=== PATIENT | male | born 1950 | race Caucasian/White ===

== ENCOUNTER 2018-10-29 20:23 | Emergency (ER) | payer MEDICARE ==
[~2018-10-29] VITALS: Ht 182.9 cm; Wt 97.5 kg
[2018-10-29] MEDS ORDERED: ONDANSETRON 4 MG/2 ML (SDV) Z0FRAN IVP STA (21:37)
[2018-10-29] MEDS ORDERED: NS IV 1000 ML 1,000 ML IV STA (21:37)
[2018-10-29] MEDS ORDERED: KETOROLAC 30 MG/ML VIAL IVP STA (21:37)
--- NOTE | 2018-10-29 21:45 | ED Back Pain ---
General Chief Complaint: Back Problems Stated Complaint: LEFT BACK PAIN Nursing Triage Note: PT AMBULATE TO ROOM FS05 WITH C/O BACK PAIN STARTING APPROX 0030 TODAY. PT STATES PAIN IS ON THE LEFT SIDE. PT STATES PAIN WOKE HIM UP FROM SLEEP. PT REPORTS HX OF KIDNEY STONES. Nursing Sepsis Screen: No Definite Risk Source of Information: Patient, Spouse History of Present Illness Date Seen by Provider: Oct 29, 2018 Time Seen by Provider: 21:27 Initial Comments 68-year-old male presenting with complaints of left flank pain that has been going on since 12:30 this morning. He states that he has had kidney stones in the past but it's been over 16 years since his last one. He denies any history diverticulitis. He initially had pain that woke him up this morning. He had manage the pain throughout the day and has taken some Tylenol for it around 1 this afternoon. He has not needed anything else for pain since then. He then had worse pain around 7 PM. While in the emergency Department he had flank pain and nausea that developed. He denies having any bloody stools or blood in his urine today. He denies fever or chills today. Allergies and Home Medications Allergies Coded Allergies: Penicillins (Verified Allergy, Unknown, 10/29/18) Home Medications Hydrocodone/Acetaminophen 1 Each Tablet, 0.5-1 EACH PO Q6H PRN for PAIN-MODERATE Prescribed by: NELLY MATTHEWS on 10/29/182252 Ondansetron HCl 4 Mg Tablet, 4 MG PO Q6H PRN for NAUSEA/VOMITING Prescribed by: NELLY MATTHEWS on 10/29/18 225 Patient Home Medication List Home Medication List Reviewed: Yes Review of Systems Constitutional: No chills, No fever EENTM: no symptoms reported Respiratory: no symptoms reported Cardiovascular: no symptoms reported Gastrointestinal: abdominal pain (left flank pain); No diarrhea; nausea (developed in ED) Genitourinary: No dysuria; other (left flank pain) Musculoskeletal: back pain (left flank pain) Skin: no symptoms reported Psychiatric/Neurological: No Symptoms Reported Past Wyfslkd-Fdyrrz-Bxotjg Hx Past Med/Social Hx: Reviewed Nursing Past Med/Soc Hx Patient Social History Alcohol Use: Denies Use Recreational Drug Use: No Smoking Status: Never a Smoker 2nd Hand Smoke Exposure: No Recent Foreign Travel: No Contact w/Someone Who Travel: No Recent Infectious Disease Expo: No Recent Hopitalizations: No Physical Abuse: No Sexual Abuse: No Mistreated: No Fear: No Seasonal Allergies Seasonal Allergies: No Past Medical History Surgeries: Yes Vasectomy Respiratory: No Cardiac: Yes Hypertension Neurological: No Genitourinary: Yes Kidney Infection, Kidney Stones Gastrointestinal: No Musculoskeletal: Yes Gout Endocrine: No HEENT: No Loss of Vision: Denies Hearing Impairment: Denies Cancer: No Psychosocial: No Integumentary: No Blood Disorders: No Physical Exam Vital Signs Vital Signs - First Documented 10/29/18 21:06 Temp 99.1 Pulse 107 Resp 17 B/P (MAP) 167/89 (115) Pulse Ox 98 O2 Delivery Room Air Capillary Refill : Less Than 3 Seconds Height, Weight, BMI Height: 6'0" Weight: 215lbs. oz. 97.268336ou; BMI Method:Stated General Appearance: No Apparent Distress, WD/WN HEENT: Normal ENT Inspection, Pharynx Normal Cardiovascular: Regular Rate, Rhythm, Normal Peripheral Pulses Respiratory: Chest Non Tender, Lungs Clear, Normal Breath Sounds, No Accessory Muscle Use, No Respiratory Distress Gastrointestinal: Normal Bowel Sounds, No Pulsatile Mass, Soft; No Rebound; Tenderness (left flank) Back: No CVA Tenderness, No Vertebral Tenderness, Other (pain with palpation along left flank) Extremity: Normal Inspection, Normal Range of Motion, No Calf Tenderness, No Pedal Edema Neurologic/Psychiatric: Alert, Oriented x3, No Motor/Sensory Deficits Skin: Normal Color, Warm/Dry Progress/Results/Core Measures Results/Orders Lab Results Laboratory Tests Test 10/29/18 09:08 10/29/18 22:48 Range/Units White Blood Count 11.0 4.3-11.0 10^3/uL Red Blood Count 4.69 4.35-5.85 10^6/uL Hemoglobin 14.3 13.3-17.7 G/DL Hematocrit 41 40-54 % Mean Corpuscular Volume 88 80-99 FL Mean Corpuscular Hemoglobin 30 25-34 PG Mean Corpuscular Hemoglobin Concent 35 32-36 G/DL Red Cell Distribution Width 13.7 10.0-14.5 % Platelet Count 274 130-400 10^3/uL Mean Platelet Volume 9.9 7.4-10.4 FL Neutrophils (%) (Auto) 65 42-75 % Lymphocytes (%) (Auto) 22 12-44 % Monocytes (%) (Auto) 9 0-12 % Eosinophils (%) (Auto) 3 0-10 % Basophils (%) (Auto) 1 0-10 % Neutrophils # (Auto) 7.1 1.8-7.8 X 10^3 Lymphocytes # (Auto) 2.4 1.0-4.0 X 10^3 Monocytes # (Auto) 1.0 0.0-1.0 X 10^3 Eosinophils # (Auto) 0.4 H 0.0-0.3 10^3/uL Basophils # (Auto) 0.1 0.0-0.1 10^3/uL Sodium Level 142 135-145 MMOL/L Potassium Level 3.5 L 3.6-5.0 MMOL/L Chloride Level 103 98-107 MMOL/L Carbon Dioxide Level 22 21-32 MMOL/L Anion Gap 17 H 5-14 MMOL/L Blood Urea Nitrogen 20 H 7-18 MG/DL Creatinine 1.35 H 0.60-1.30 MG/DL Estimat Glomerular Filtration Rate 52 BUN/Creatinine Ratio 15 Glucose Level 122 H 70-105 MG/DL Calcium Level 10.0 8.5-10.1 MG/DL Corrected Calcium 8.5-10.1 MG/DL Total Bilirubin 0.4 0.1-1.0 MG/DL Aspartate Amino Transf (AST/SGOT) 23 5-34 U/L Alanine Aminotransferase (ALT/SGPT) 27 0-55 U/L Alkaline Phosphatase 105 40-136 U/L Total Protein 8.1 6.4-8.2 GM/DL Albumin 4.8 H 3.2-4.5 GM/DL Lipase 56 8-78 U/L Urine Color YELLOW Urine Clarity CLEAR Urine pH 6.0 5-9 Urine Specific [place] 1.020 1.016-1.022 Urine Protein NEGATIVE NEGATIVE Urine Glucose (UA) NEGATIVE NEGATIVE Urine Ketones NEGATIVE NEGATIVE Urine Nitrite NEGATIVE NEGATIVE Urine Bilirubin NEGATIVE NEGATIVE Urine Urobilinogen 0.2 NORMAL MG/DL Urine Leukocyte Esterase NEGATIVE NEGATIVE Urine RBC (Auto) 2+ H NEGATIVE Urine RBC 10-25 H /HPF Urine WBC NONE /HPF Urine Crystals NONE /LPF Urine Bacteria NEGATIVE /HPF Urine Casts NONE /LPF Urine Mucus NEGATIVE /LPF Urine Culture Indicated NO My Orders Orders - NELLY MATTHEWS MD Ua Culture If Indicated (10/29/18 21:22) Comprehensive Metabolic Panel (10/29/18 21:37) Lipase (10/29/18 21:37) Ed Iv/Invasive Line Start (10/29/18 21:37) Cbc With Automated Diff (10/29/18 21:37) Ns Iv 1000 Ml (Sodium Chloride 0.9%) (10/29/18 21:37) Ondansetron Injection (Zofran Injectio (10/29/18 21:37) Ketorolac Injection (Toradol Injection) (10/29/18 21:37) Ct Abd/Pelvis Wo(Kidney Stone) (10/29/18 21:37) Rx-Hydrocodone/Apap 5-325 Mg (Rx-Vicodin (10/29/18 22:45) Rx-Ondansetron Po (Rx-Zofran Po) (10/29/18 22:45) Vital Signs/I&O 10/29/18 10/29/18 21:06 23:16 Temp 99.1 Pulse 107 69 Resp 17 17 B/P (MAP) 167/89 (115) 131/70 (90) Pulse Ox 98 98 O2 Delivery Room Air Room Air Blood Pressure Mean: 115 Progress Progress Note #1: Progress Note Check UA and labs. Give IV Toradol for pain, Zofran for nausea, IVF for hydration. Check CT scan for kidney stones vs diverticulitis vs other pathology in belly to cause his pain in left flank. Progress Note #2: Time: 22:27 Progress Note CBC does not show any acute significant abnormality. His Chemistry shows mild elevation of BUN and Cr. The CT scan came back showing moderate perinephric stranding and obstruction on the left side with a stone in the proximal ureter on left side that measures about 8 mm. He still has not given a urine specimen yet and will check with him on his pain level. Progress Note #3: Time: 23:01 Progress Note Pain resolved with treatment in ED. UA sent just now to lab. Awaiting results. plan to discharge to home on Hydrocodone and Zofran. Counseled to follow up with Urology as soon as possible and that he will likely need to have stent and/or lithotripsy. Counseled on follow up and return precautions as well. Progress Note #4: Progress Note Urinalysis is clear of infection and so discharge as planned. Diagnostic Imaging Diagonstic Imaging: CT Plain Films/CT/US/NM/MRI: abdomen, pelvis Comments Impression: 1. Moderate left-sided hydronephrosis and perinephric stranding. An 8 mm stone is seen in the proximal left ureter. 2. Bilateral nephrolithiasis. 3. Small hiatal hernia. 4. Diverticulosis without evidence for diverticulitis. Read by radiologist Garcia Hernandez M.D. Study was read at 22:08 PM and initial results transmitted at 22:21 PM Reviewed: Reviewed [place] Study Departure Impression Primary Impression: Renal colic on left side Additional Impressions: Urinary tract obstruction due to kidney stone Renal and ureteric calculus Hydronephrosis with renal and ureteral calculous obstruction Disposition: HOME, SELF-CARE Condition: Improved Departure-Patient Inst. Decision time for Depature: 23:09 Referrals: NO,LOCAL PHYSICIAN (PCP) Primary Care Physician YURIDIA REAVES MD Patient Instructions: Kidney Stones (DC), Renal Colic (DC), Kidney Stone Diet, How to Strain Your Urine Add. Discharge Instructions: Stay well hydrated and drink plenty of water. Follow up with Urology, such as Dr. Reaves, as soon as possible. Call in the morning to arrange for follow up. Let them know you have an obstructing kidney stone measuring 8 mm in the proximal ureter and have been having pain. If you have fever over 101 F, uncontrolled pain or uncontrolled vomiting then return or seek medical care as you may need to be admitted for pain and nausea control due to the kidney stone or you have an infection that requires IV antibiotics Dr. Victoria, Urology, is also a follow up option. [address] [place] [address] [place] [address]. [phone] or [phone] All discharge instructions reviewed with patient and/or family. Voiced understanding. Scripts Ondansetron HCl (Ondansetron HCl) 4 Mg Tablet 4 MG PO Q6H PRN for NAUSEA/VOMITING for 3 Days, #12 TAB 0 Refills Prov: NELLY MATTHEWS MD 10/29/18 Hydrocodone/Acetaminophen (Hydrocodon-Acetaminophn 10-325) 1 Each Tablet 0.5-1 EACH PO Q6H PRN for PAIN-MODERATE MDD 5 for 5 Days, #15 TAB 0 Refills Prov: NELLY MATTHEWS MD 10/29/18 NELLY MATTHEWS MD Oct 29, 2018 21:45
[2018-10-29 21:50] LABS: HEMATOCRIT 41 % (40-54); HEMOGLOBIN 14.3 G/DL (13.3-17.7); MEAN CORPUSCULAR HEMOGLOBIN 30 PG (25-34); MEAN CORPUSCULAR VOLUME 88 FL (80-99)
[2018-10-29 21:51] LABS: BASOPHILS # (AUTO) 0.1 10^3/uL (0.0-0.1); BASOPHILS % (AUTO) 1 % (0-10); EOSINOPHILS # (AUTO) 0.4 10^3/uL (0.0-0.3); EOSINOPHILS % (AUTO) 3 % (0-10); LYMPHOCYTES # (AUTO) 2.4 X 10^3 (1.0-4.0); LYMPHOCYTES % (AUTO) 22 % (12-44); MEAN CORPUSCULAR HGB CONC 35 G/DL (32-36); MEAN PLATELET VOLUME 9.9 FL (7.4-10.4); MONOCYTES % (AUTO) 9 % (0-12); NEUTROPHILS # (AUTO) 7.1 X 10^3 (1.8-7.8); NEUTROPHILS % (AUTO) 65 % (42-75); PLATELET COUNT 274 10^3/uL (130-400); RED CELL DISTRIBUTION WIDTH 13.7 % (10.0-14.5)
[2018-10-29 22:20] LABS: ALANINE AMINOTRANSFERASE 27 U/L (0-55); ALBUMIN 4.8 GM/DL (3.2-4.5); ALKALINE PHOSPHATASE 105 U/L (40-136); BILIRUBIN,TOTAL 0.4 MG/DL (0.1-1.0); BUN/CREATININE RATIO 15; CARBON DIOXIDE 22 MMOL/L (21-32); CHLORIDE 103 MMOL/L (98-107); CREATININE SERUM 1.35 MG/DL (0.60-1.30); GFR ESTIMATED 52; GLUCOSE 122 MG/DL (70-105); LIPASE 56 U/L (8-78); POTASSIUM 3.5 MMOL/L (3.6-5.0); SODIUM 142 MMOL/L (135-145); TOTAL PROTEIN 8.1 GM/DL (6.4-8.2)
[2018-10-29] MEDS ORDERED: RX-HYDROCODONE/APAP 5/325 MG #4 TAB PK PO PRN (22:45)
[2018-10-29] MEDS ORDERED: RX-ONDANSETRON 4 MG ODT (ZOFRAN) PPK #4 PO PRN (22:45)
[2018-10-29] MEDS ORDERED: ONDA4TAB10 PO ×2 (22:53)
[2018-10-29] MEDS ORDERED: HYDR-3820 PO ×2 (22:53)
[2018-10-29 22:58] LABS: CLARITY,URINE CLEAR; COLOR,URINE YELLOW
[2018-10-29 22:59] LABS: BACTERIA,URINE NEGATIVE /HPF; BILIRUBIN,URINE NEGATIVE (NEGATIVE); GLUCOSE, URINE (UA) NEGATIVE (NEGATIVE); KETONES,URINE NEGATIVE (NEGATIVE); LEUKOCYTE ESTERASE ,URINE NEGATIVE (NEGATIVE); NITRITE,URINE NEGATIVE (NEGATIVE); PROTEIN,URINE NEGATIVE (NEGATIVE); UROBILINOGEN,URINE 0.2 MG/DL (NORMAL)
[2018-10-29 23:16] VITALS: BP 131/70
--- NOTE | 2018-10-30 07:29 | Diagnostic Imaging Report ---
PROCEDURE: CT urinary tract, rule out kidney stone. TECHNIQUE: Multiple contiguous axial images were obtained through the abdomen and pelvis without the use of intravenous contrast. Auto Exposure Controls were utilized during the CT exam to meet ALARA standards for radiation dose reduction. INDICATION: Left flank pain. FINDINGS: There is a large calculus in the proximal left ureter at the level of the L3 superior endplate measuring 8.8 mm in transverse dimension with a cephalocaudal length of 11.6 mm. The stone results in moderate degree of left-sided hydroureteronephrosis proximally. There is some perinephric edema and stranding but no urinoma or fluid collection. Additional nonobstructing left-sided intrarenal stones measured 2-3 mm maximal. Contralateral right kidney contains 4 mm stone nonobstructing within interpolar calyx. The adrenals are negative. The pancreas, spleen, liver, gallbladder and bile ducts all nonacute. There is a small hiatal hernia. The aorta is calcified but nonaneurysmal. There is no appendicitis or diverticulitis. IMPRESSION: 12 mm long axis left proximal ureteral stone with moderate hydronephrosis. Additional nonobstructing intrarenal stones bilaterally. No other significant finding. Dictated by: Dictated on workstation # [id number]
[2018-10-30] MEDS ORDERED: METO100T12 PO ×2 (16:12)
[2018-10-30] MEDS ORDERED: AMLO10TA7 PO ×2 (16:12)
[2018-10-30] MEDS ORDERED: ALLO300T2 PO ×2 (16:12)
== END 2018-10-29 23:16 | disposition home or self-care (01) ==
LOC: ER FS 20:26
DX: N13.6 Pyonephrosis (principal); N23 Unspecified renal colic; I10 Essential (primary) hypertension; Z87.442 Personal history of urinary calculi; Z88.0 Allergy status to penicillin
CPT/HCPCS: 36415; 74176; 80053; 81000; 83690; 85025; 96361; 96374; 96375

== ENCOUNTER 2018-10-30 15:36 | Outpatient (CLI) | payer MEDICARE ==
[~2018-10-30] VITALS: Ht 182.9 cm; Wt 97.5 kg
[~2018-10-30 15:36] MED LIST changes: -ALLO300T2 PO; -AMLO10TA7 PO; -METO100T12 PO; -SULF1TAB35 PO; -TAMS0.4C98 PO
[2018-10-30] MEDS ORDERED: AMLO10TA7 PO (16:12)
[2018-10-30] MEDS ORDERED: METO100T12 PO (16:12)
[2018-10-30] MEDS ORDERED: ALLO300T2 PO (16:12)
[2018-10-31] MEDS ORDERED: SULF1TAB35 PO (11:47)
[2018-10-31] MEDS ORDERED: TAMS0.4C98 PO (11:47)
== END 2018-10-30 16:18 | disposition home or self-care (01) ==
LOC: PREOP 15:36
PROVIDERS: ATTEND Urology
DX: Z01.818 Encounter for other preprocedural examination (principal)

== ENCOUNTER → 2018-10-30 | Outpatient (CLI) | payer MEDICARE ==
[~2018-10-30] MED LIST: ALLO300T2 PO; AMLO10TA7 PO; HYDR-3820 PO; METO100T12 PO; ONDA4TAB10 PO; SULF1TAB35 PO; TAMS0.4C98 PO
--- NOTE | 2018-10-30 14:28 | Diagnostic Imaging Report ---
INDICATION: Left ureteral calculus. COMPARISON: 10/29/2018. FINDINGS: A single supine radiographic view of the abdomen was obtained and again demonstrates the large ellipsoid 1.3 x 0.9 cm calculus projecting over the proximal left psoas muscle, consistent with a proximal left ureteral location. Multiple additional punctate nonobstructive left renal calculi are identified. The punctate nonobstructive right renal calculus seen on the previous CT is inconspicuous and may be obscured. The small bowel loops are nondistended. There is no large collection of free intraperitoneal air. No unexpected radiopaque foreign bodies are seen. IMPRESSION: 1. Persistent large calculus within the proximal left ureter. 2. Redemonstration of the left-sided nephrolithiasis. 3. The known right renal calculus is inconspicuous. Dictated by: Dictated on workstation # [id number]
== END ==
LOC: RAD 13:08
PROVIDERS: ATTEND Urology
DX: N20.2 Calculus of kidney with calculus of ureter (principal)
CPT/HCPCS: 74018

== ENCOUNTER 2018-10-31 07:19 | Day surgery (SDC) | payer MEDICARE ==
[~2018-10-31] VITALS: Ht 182.9 cm; Wt 97.5 kg
[2018-10-31] VITALS (10 sets, daily range): BP systolic 79–147; BP diastolic 49–84
[~2018-10-31 07:19] MED LIST changes: +ALLO300T2 PO; +AMLO10TA7 PO; +METO100T12 PO
[2018-10-31] MEDS ORDERED: CATHETER FLUSH 10 ML SYR IV PRN (07:45)
[2018-10-31] MEDS ORDERED: LEVOFLOXACIN 500 MG/100 ML IV 100 ML IV ONE (07:45)
[2018-10-31] MEDS ORDERED: ONDANSETRON 4 MG/2 ML (SDV) Z0FRAN IVP ONE (08:15)
[2018-10-31] MEDS ORDERED: FAMOTIDINE 20MG/2ML IV (PEPCID) IVP ONE (08:15)
--- NOTE | 2018-10-31 08:25 | Progress Note-Pre Operative ---
Pre-Operative Progress Note H&P Reviewed The H&P was reviewed, patient examined and no changes noted. Date Seen by Provider: Oct 31, 2018 Time Seen by Provider: 08:25 Date H&P Reviewed: Oct 31, 2018 Time H&P Reviewed: 08:25 Pre-Operative Diagnosis: LT PROXIMAL URETERAL STONE YURIDIA REAVES MD Oct 31, 2018 08:25
[2018-10-31] MEDS: LACTATED RINGERS 1,000 ML IV SCH ×2 (08:28→10:51)
--- NOTE | 2018-10-31 08:50 | Diagnostic Imaging Report ---
EXAMINATION: Supine abdomen at 0756 hours. INDICATION: Left ureteral stone. FINDINGS: As noted on the prior exam of 10/30/2009, there is a 12-13 mm calculus overlying the proximal left ureter. The calcification is unchanged in position when compared to the prior exam. There are also a few other much smaller calcifications overlying the inferior pole of the left kidney and there is a single 3 mm calcific density overlying the right renal contour. The overall appearance of the abdomen has not changed significantly otherwise. IMPRESSION: The calculus overlying the proximal left ureter seen previously is unchanged in position. The overall appearance of the abdomen is otherwise stable. Dictated by: Dictated on workstation # [id number]
[2018-10-31] MEDS ORDERED: DEXAMETHASONE 10 MG/ML (DECADRON) 1 ML VIAL ONE (09:39)
[2018-10-31] MEDS ORDERED: ONDANSETRON 4 MG/2 ML (SDV) Z0FRAN ONE (09:39)
[2018-10-31] MEDS ORDERED: proPOfol 200 MG/20 ML (DIPRIVAN) VIAL IV ONE (09:39)
[2018-10-31] MEDS ORDERED: LIDOCAINE PF 2% 5 ML (XYLOCAINE) VIAL ONE (09:39)
[2018-10-31] MEDS ORDERED: fentaNYL INJECTION 100 MCG/2 ML AMP ONE (09:40)
[2018-10-31] MEDS ORDERED: MIDAZOLAM 2 MG/2 ML (VERSED) VIAL ONE (09:40)
[2018-10-31] MEDS ORDERED: GLYCOPYRROLATE 0.2 MG/ML (ROBINUL) 2 ML VIAL ONE ×2 (10:04→10:33)
[2018-10-31] MEDS ORDERED: SUGAMMADEX 500 MG/5 ML VIAL (BRIDION) IV ONE (10:17)
[2018-10-31] MEDS ORDERED: ROCURONIUM 10 MG/ML 5 ML SYRINGE IV ONE (10:19)
[2018-10-31] MEDS ORDERED: SEVOFLURANE (ULTANE) 15 ML INHAL SOLN ONE (10:35)
[2018-10-31] MEDS ORDERED: HYDROmorphone 2 MG/ML VIAL (DILAUDID) IV ONE (10:45)
[2018-10-31] MEDS ORDERED: ONDANSETRON 4 MG/2 ML (SDV) Z0FRAN IVP PRN (10:45)
--- NOTE | 2018-10-31 10:49 | Progress Note-Post Operative ---
Post-Operative Progess Note Surgeon (s)/Stitcher Set Up Operator Automatic (s) Surgeon YURIDIA REAVES MD Stitcher Set Up Operator Automatic: NONE Pre-Operative Diagnosis LT PROXIMAL URETERAL STONE Post-Operative Diagnosis SAME Procedure & Operative Findings Date of Procedure 10/31/18 Procedure Performed/Findings CYSTOSCOPY WITH LT URETERAL STONE MANIPULATION AND INSERTION ON STENT Anesthesia Type GENERAL Estimated Blood Loss Estimated blood loss (mL): NONE Specimens/Packing Specimens Removed NONE Packing: NONE YURIDIA REAVES MD Oct 31, 2018 10:49
--- NOTE | 2018-10-31 10:53 | Discharge Inst-Urology ---
Discharge Inst-Urology Reconcile Patient Problems Problems Reviewed?: Yes Patient Instructions/Follow Up Plan/Assessment/Instructions Please make appointment to been seen in office next Monday 11/06, KUB prior to it. Increase oral fluids for 48 hours and then as needed. Diet and Activity as tolerated. If questions or concerns contact your physician Or seek help at emergency department. YURIDIA REAVES MD Oct 31, 2018 10:53
[2018-10-31] MEDS ORDERED: SULF1TAB35 PO ×2 (11:47)
[2018-10-31] MEDS ORDERED: TAMS0.4C98 PO ×2 (11:47)
--- NOTE | 2018-10-31 13:47 | Anesthesia-General Post-Op ---
General Patient Condition Mental Status/LOC: Same as Preop Cardiovascular: Satisfactory Nausea/Vomiting: Absent Respiratory: Satisfactory Pain: Controlled Complications: Absent Post Op Complications Complications None Follow Up Care/Instructions Patient Instructions None needed. Anesthesia/Patient Condition Patient Condition Patient is doing well, no complaints, stable vital signs, no apparent adverse anesthesia problems. No complications reported per nursing. CHERRY MONTEIRO CRNA Oct 31, 2018 13:47
--- NOTE | 2018-10-31 18:46 | OPERATIVE REPORT ---
DATE OF SERVICE: 10/31/2018 PREOPERATIVE DIAGNOSIS: Left proximal ureteral stone. POSTOPERATIVE DIAGNOSIS: Left proximal ureteral stone. OPERATIONS PERFORMED: Cystoscopy, left ureteral stone manipulation and insertion of left stent. SURGEON: Paulino Reaves MD ANESTHESIA: General. COMPLICATIONS: None. DESCRIPTION OF PROCEDURE: Under satisfactory general anesthesia, the patient in lithotomy position, genitalia were prepped and draped in the usual sterile fashion. Cystoscope was introduced under vision. The anterior urethra was normal. Prostate was nonobstructing. Bladder neck was open. Bladder was entered and revealed some trabeculations. Ureteric orifices were normal in shape, size and configuration with clear efflux, sluggish on the left side. Using the foroblique lens, I passed a 6-Polish 28 cm double-J stent through the left ureteral orifice and guided fluoroscopically to the stone level, bypassed it all the way up to the left renal pelvis. The guidewire was removed. The stent was seen draining nicely proximally fluoroscopically and distally endoscopically. Bladder was evacuated and the cystoscope was removed. The patient tolerated the procedure and anesthesia well and was sent to recovery room in stable condition. PLAN: Left ESWL and removal of stent next Tuesday when the machine is going to be here. We will see him back at the office on Tuesday and preoperatively. Job ID: [id number] DocumentID: [id number] Dictated Date: 10/31/2018 10:55:17 Professor Of Radiology Date: 10/31/2018 18:45:40 Dictated By: PAULINO REAVES MD
== END 2018-10-31 12:25 | disposition home or self-care (01) ==
LOC: SDC 07:19
PROVIDERS: ATTEND Urology
DX: N20.1 Calculus of ureter (principal); N32.89 Other specified disorders of bladder; M10.9 Gout, unspecified; I10 Essential (primary) hypertension; R51 Headache; Z88.0 Allergy status to penicillin; Z79.899 Other long term (current) drug therapy
CPT/HCPCS: 74018; 87081

== ENCOUNTER 2018-11-06 05:47 | Outpatient (CLI) | payer MEDICARE ==
[~2018-11-06] VITALS: Ht 182.9 cm; Wt 97.5 kg
[~2018-11-06 05:47] MED LIST changes: -HYDR-3870 PO; -PHEN-640 PO
[2018-11-07] MEDS ORDERED: PHEN-640 PO (09:29)
[2018-11-07] MEDS ORDERED: SULF1TAB35 PO (09:29)
[2018-11-07] MEDS ORDERED: HYDR-3870 PO (09:29)
[2018-11-07] MEDS ORDERED: TAMS0.4C98 PO (09:29)
== END 2018-11-06 15:30 | disposition home or self-care (01) ==
LOC: PREOP 05:47
PROVIDERS: ATTEND Urology
DX: Z01.818 Encounter for other preprocedural examination (principal)

== ENCOUNTER → 2018-11-06 | Outpatient (CLI) | payer MEDICARE ==
[~2018-11-06] MED LIST changes: +HYDR-3870 PO; +PHEN-640 PO; +SULF1TAB35 PO; +TAMS0.4C98 PO
--- NOTE | 2018-11-06 15:31 | Diagnostic Imaging Report ---
INDICATION: Left ureteral stent placement and left-sided stones. TIME OF EXAM: 01:30 p.m. COMPARISON: Comparison is made with prior radiograph from 10/31/2018. FINDINGS: Since the prior study, a left-sided double-J nephroureteral stent has been placed. Previously noted calculus adjacent to L2 transverse process remains in place and is in similar position. Tiny calculus overlies the lower pole of the left kidney as well. Bowel gas pattern is unremarkable. IMPRESSION: Left-sided double-J nephroureteral stent placement. Previously noted left ureteral stone is unchanged in position at approximately the level of L2. Dictated by: Dictated on workstation # [id number]
== END ==
LOC: RAD 13:10
PROVIDERS: ATTEND Urology
DX: N20.1 Calculus of ureter (principal); Z96.0 Presence of urogenital implants
CPT/HCPCS: 74018

== ENCOUNTER 2018-11-07 07:35 | Day surgery (SDC) | payer MEDICARE ==
[2018-11-07] VITALS (11 sets, daily range): BP systolic 103–136; BP diastolic 69–80
[~2018-11-07] VITALS: Ht 187 cm; Wt 97.5 kg
--- NOTE | 2018-11-07 07:58 | Diagnostic Imaging Report ---
Indication: Preprocedure workup for lithotripsy. Comparison: 11/06/2018 at 1:30 PM. Findings and impression: 1. The 10 mm stone along the proximal aspect of the left nephroureteral stent is unchanged in position. 2. Stable position of left nephroureteral stent. Dictated by: Dictated on workstation # [id number]
--- NOTE | 2018-11-07 08:03 | Progress Note-Pre Operative ---
Pre-Operative Progress Note H&P Reviewed The H&P was reviewed, patient examined and no changes noted. Date Seen by Provider: Nov 07, 2018 Time Seen by Provider: 08:03 Date H&P Reviewed: Nov 07, 2018 Time H&P Reviewed: 08:03 Pre-Operative Diagnosis: LT PROXIMAL URETERAL STONE YURIDIA REAVES MD Nov 07, 2018 08:03
[2018-11-07] MEDS ORDERED: proPOfol 200 MG/20 ML (DIPRIVAN) VIAL IV ONE (08:11)
[2018-11-07] MEDS ORDERED: LIDOCAINE PF 2% 5 ML (XYLOCAINE) VIAL ONE (08:11)
[2018-11-07] MEDS ORDERED: DEXAMETHASONE 10 MG/ML (DECADRON) 1 ML VIAL ONE (08:11)
[2018-11-07] MEDS ORDERED: ONDANSETRON 4 MG/2 ML (SDV) Z0FRAN ONE ×2 (08:11→08:12)
[2018-11-07] MEDS ORDERED: fentaNYL INJECTION 100 MCG/2 ML AMP ONE (08:12)
[2018-11-07] MEDS ORDERED: MIDAZOLAM 2 MG/2 ML (VERSED) VIAL ONE (08:12)
[2018-11-07] MEDS ORDERED: FAMOTIDINE 20MG/2ML IV (PEPCID) ONE (08:13)
[2018-11-07] MEDS ORDERED: ONDANSETRON 4 MG/2 ML (SDV) Z0FRAN IV ONE (08:15)
[2018-11-07] MEDS ORDERED: FAMOTIDINE 20MG/2ML IV (PEPCID) IV ONE (08:15)
[2018-11-07] MEDS ORDERED: LEVOFLOXACIN 500 MG/100 ML IV 100 ML IV ONE (08:15)
[2018-11-07] MEDS: LACTATED RINGERS 1,000 ML IV PRN ×2 (08:28→09:07)
--- NOTE | 2018-11-07 08:44 | Progress Note-Post Operative ---
Post-Operative Progess Note Surgeon (s)/Mortgage Loan Counselor (s) Surgeon YURIDIA REAVES MD Mortgage Loan Counselor: NONE Pre-Operative Diagnosis LT PROXIMAL URETERAL STONE Post-Operative Diagnosis SAME Procedure & Operative Findings Date of Procedure 11/07/18 Procedure Performed/Findings LT ESWL, CYSTO AND REMOVAL OF LT STENT Anesthesia Type GENERAL Estimated Blood Loss Estimated blood loss (mL): NONE Specimens/Packing Specimens Removed NONE TO PATH Packing: NONE YURIDIA REAVES MD Nov 07, 2018 08:44
[2018-11-07] MEDS ORDERED: SEVOFLURANE (ULTANE) 15 ML INHAL SOLN ONE (08:45)
--- NOTE | 2018-11-07 09:17 | Discharge Inst-Urology ---
Discharge Inst-Urology Reconcile Patient Problems Problems Reviewed?: Yes Patient Instructions/Follow Up Plan/Assessment/Instructions Please make appointment to been seen in office next Tuesday, KUB prior to it. KUB on way home Post ESWL instructions Increase oral fluids for 48 hours and then as needed. Diet and Activity as tolerated. If questions or concerns contact your physician Or seek help at emergency department. YURIDIA REAVES MD Nov 07, 2018 09:17
[2018-11-07] MEDS ORDERED: PHENYLEPHRINE INJ 10 MG/ML (FOR DRIP KITS ONLY) ONE ×2 (09:24→09:25)
[2018-11-07] MEDS ORDERED: PHENYLEPHRINE 100 MCG/ML 10 ML (ANESTHESIA) SYR ONE (09:25)
[2018-11-07] MEDS ORDERED: SULF1TAB35 PO (09:29)
[2018-11-07] MEDS ORDERED: TAMS0.4C98 PO (09:29)
[2018-11-07] MEDS ORDERED: HYDR-3870 PO (09:29)
[2018-11-07] MEDS ORDERED: PHEN-640 PO (09:29)
[2018-11-07] MEDS ORDERED: HYDROmorphone 2 MG/ML VIAL (DILAUDID) IV ONE (09:30)
[2018-11-07] MEDS ORDERED: ONDANSETRON 4 MG/2 ML (SDV) Z0FRAN IVP PRN (09:30)
--- NOTE | 2018-11-07 10:10 | Anesthesia-General Post-Op ---
General Patient Condition Mental Status/LOC: Same as Preop Cardiovascular: Satisfactory Nausea/Vomiting: Absent Respiratory: Satisfactory Pain: Controlled Complications: Absent Post Op Complications Complications None Follow Up Care/Instructions Patient Instructions None needed. Anesthesia/Patient Condition Patient Condition Patient is doing well, no complaints, stable vital signs, no apparent adverse anesthesia problems. No complications reported per nursing. CHERRY MONTEIRO CRNA Nov 07, 2018 10:10
[2018-11-07] MEDS ORDERED: FUROSEMIDE 40 MG/4 ML INJ (LASIX) ONE (10:14)
[2018-11-07] MEDS ORDERED: KETOROLAC 30 MG/ML VIAL ONE (10:14)
[2018-11-07] MEDS ORDERED: HYDROcodone/APAP 5 MG/325 MG (LORTAB) TAB ONE (10:21)
[2018-11-07] MEDS ORDERED: PHENAZOPYRIDINE 100 MG (PYRIDIUM) TABLET ONE (10:21)
[2018-11-07] MEDS ORDERED: PHENAZOPYRIDINE 100 MG (PYRIDIUM) TABLET PO ONE (10:30)
[2018-11-07] MEDS ORDERED: HYDROcodone/APAP 5 MG/325 MG (LORTAB) TAB PO ONE ×2 (10:30→12:00)
--- NOTE | 2018-11-07 10:38 | NUR ---
1 LORTAB 5 MG GIVEN FOR PAIN AND 200 MG OF PYRIDIUM.
--- NOTE | 2018-11-07 11:10 | NUR ---
LORTAB 5 MG REPEATED. PATIENT STILL COMPLAINING OF LEFT FLANK PAIN AND BLADDER DISCOMFORT.
--- NOTE | 2018-11-07 13:21 | Diagnostic Imaging Report ---
INDICATION: Status post lithotripsy. TIME OF EXAM: 11:21 a.m. Correlation is made with prior radiograph from earlier the same day. FINDINGS: There has been some fragmentation of the stone in the region of the proximal left ureter. Calcific density also overlies the lower pole of left kidney. No right-sided calculi are seen. Bowel gas pattern is unremarkable. IMPRESSION: There appears to be some mild fragmentation of the large stone in the proximal left ureter, status post lithotripsy. Dictated by: Dictated on workstation # [id number]
--- NOTE | 2018-11-07 13:33 | OPERATIVE REPORT ---
DATE OF SERVICE: 11/07/2018 PREOPERATIVE DIAGNOSIS: Left proximal ureteral stone. POSTOPERATIVE DIAGNOSIS: Left proximal ureteral stone. OPERATIONS PERFORMED: Left ESWL, cystoscopy and removal of left double-J stent. SURGEON: Paulino Reaves MD ANESTHESIA: General. COMPLICATIONS: None. DESCRIPTION OF PROCEDURE: Under satisfactory general anesthesia, the patient in supine position, the left proximal ureteral stone was localized. Shocks were delivered at kV of 6. A total of 3000 shocks completely fragmented the stone with good layering. The genitalia were prepped and draped in the usual sterile fashion. Flexible cystoscope was introduced under vision. The distal end of the left stent was visualized and was grasped with grasping forceps and removed. The bladder was drained with a Lunsford catheter because of the flexible cystoscopy and the catheter was removed. The patient received 40 mg of Lasix and 30 mg of Toradol IV at the end of the procedure. He tolerated the procedure and anesthesia well and was sent to recovery room in stable condition. Job ID: [id number] DocumentID: [id number] Dictated Date: 11/07/2018 09:19:44 Narrow Fabric Loom Fixer Date: 11/07/2018 13:31:56 Dictated By: PAULINO REAVES MD
== END 2018-11-07 11:46 | disposition home or self-care (01) ==
LOC: SDC 07:35
PROVIDERS: ATTEND Urology
DX: N20.1 Calculus of ureter (principal); I10 Essential (primary) hypertension; K57.90 Diverticulosis of intestine, part unspecified, without perforation or abscess without bleeding; Z88.0 Allergy status to penicillin; Z98.52 Vasectomy status; Z79.891 Long term (current) use of opiate analgesic; Z79.899 Other long term (current) drug therapy
CPT/HCPCS: 74018; 87081

== ENCOUNTER → 2018-11-13 | Outpatient (CLI) | payer MEDICARE ==
[~2018-11-13] MED LIST changes: +HYDR-3870 PO; +PHEN-640 PO
--- NOTE | 2018-11-13 16:31 | Diagnostic Imaging Report ---
Indication: Left ureteral calculus KUB 2:59 PM The previously seen left renal calculus has been fragmented. There are Steinstrasse in the distal left ureter. Impression: The left ureteral calculus has fragmented and migrated to the distal left ureter. Dictated by: Dictated on workstation # [id number]
== END ==
LOC: RAD 14:29
PROVIDERS: ATTEND Urology
DX: N20.1 Calculus of ureter (principal)
CPT/HCPCS: 74018

== ENCOUNTER 2019-08-25 14:53 | Emergency (ER) | payer MEDICARE, OTHER ==
[~2019-08-25] VITALS: Ht 182.8 cm; Wt 97.7 kg
[~2019-08-25 14:53] MED LIST changes: +ACHYD1T PO; -HYDR-3820 PO; +ONDA-105 PO; -ONDA4TAB10 PO; -TAMS0.4C98 PO; +TMSL.4C PO
--- OUTSIDE RECORDS SUMMARY | 2019-08-25 14:59 | XMS REPORT | Continuity of Care Document ---
Author Organization Unknown Address Unknown Phone Unavailable Allergies Active Description Code Type Severity Reaction Onset Reported/Identified Relationship to Patient Clinical Status Yes Penicillins [id number] Drug Aller gy Unknown N/A 10/29/2018 Yes Penicillins [id number] Drug Aller gy Unknown childhood unsur 11/06/2018 Medications There is no data. Problems Date Dx Coded Attending Type Code Diagnosis Diagnosed By 10/29/2018 NELLY MATTHEWS MD, Ot I10 ESSENTIAL (PRIMARY) HYPERTENSION 10/29/2018 NELLY MATTHEWS MD, Ot N13.6 PYONEPHROSIS 10/29/2018 NELLY MATTHEWS MD, Ot N23 UNSPECIFIED RENAL COLIC 10/29/2018 NELLY MATTHEWS MD, Ot R10.3 2 LEFT LOWER QUADRANT PAIN 10/29/2018 NELLY MATTHEWS MD, Ot Z87.4 42 PERSONAL HISTORY OF URINARY CALCULI 10/29/2018 NELLY MATTHEWS MD, Ot Z88.0 ALLERGY STATUS TO PENICILLIN 10/30/2018 YURIDIA REAVES MD Ot Z01.8 18 ENCOUNTER FOR OTHER PREPROCEDURAL EXAMIN 10/31/2018 YURIDIA REAVES MD, Ot I10 ESSENTIAL (PRIMARY) HYPERTENSION 10/31/2018 YURIDIA REAVES MD Ot M10.9 GOUT, UNSPECIFIED 10/31/2018 YURIDIA REAVES MD Ot N20.1 CALCULUS OF URETER 10/31/2018 YURIDIA REAVES MD Ot N32.8 9 OTHER SPECIFIED DISORDERS OF BLADDER 10/31/2018 YURIDIA REAVES MD Ot R51 HEADACHE 10/31/2018 YURIDIA REAVES MD, Ot Z79.8 99 OTHER TUBE AND ROD STRAIGHTENER (CURRENT) DRUG THERAPY 10/31/2018 YURIDIA REAVES MD, Ot Z88.0 ALLERGY STATUS TO PENICILLIN 11/01/2018 YURIDIA REAVES MD Ot N20.2 CALCULUS OF KIDNEY WITH CALCULUS OF URET 11/02/2018 YURIDIA REAVES MD Ot I10 ESSENTIAL (PRIMARY) HYPERTENSION 11/02/2018 YURIDIA REAVES MD Ot M10.9 GOUT, UNSPECIFIED 11/02/2018 YURIDIA REAVES MD Ot N20.1 CALCULUS OF URETER 11/02/2018 YURIDIA REAVES MD Ot N32.8 9 OTHER SPECIFIED DISORDERS OF BLADDER 11/02/2018 YURIDIA REAVES MD Ot R51 HEADACHE 11/02/2018 YURIDIA REAVES MD Ot Z79.8 99 OTHER TUBE AND ROD STRAIGHTENER (CURRENT) DRUG THERAPY 11/02/2018 YURIDIA REAVES MD Ot Z88.0 ALLERGY STATUS TO PENICILLIN 11/02/2018 YURIDIA REAVES MD Ot I10 ESSENTIAL (PRIMARY) HYPERTENSION 11/02/2018 YURIDIA REAVES MD Ot M10.9 GOUT, UNSPECIFIED 11/02/2018 YURIDIA REAVES MD Ot N20.1 CALCULUS OF URETER 11/02/2018 YURIDIA REAVES MD Ot N32.8 9 OTHER SPECIFIED DISORDERS OF BLADDER 11/02/2018 YURIDIA REAVES MD Ot R51 HEADACHE 11/02/2018 YURIDIA REAVES MD Ot Z79.8 99 OTHER TUBE AND ROD STRAIGHTENER (CURRENT) DRUG THERAPY 11/02/2018 YURIDIA REAVES MD Ot Z88.0 ALLERGY STATUS TO PENICILLIN 11/06/2018 YURIDIA REAVES MD Ot Z01.8 18 ENCOUNTER FOR OTHER PREPROCEDURAL EXAMIN 11/07/2018 YURIDIA REAVES MD Ot I10 ESSENTIAL (PRIMARY) HYPERTENSION 11/07/2018 YURIDIA REAVES MD Ot 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, PART UNSP, W/O PERF 11/07/2018 YURIDIA REAVES MD Ot N20.1 CALCULUS OF URETER 11/07/2018 YURIDIA REAVES MD Ot Z79.8 91 DETENTION (CURRENT) USE OF OPIATE ANALGE 11/07/2018 YURIDIA REAVES MD Ot Z79.8 99 OTHER DETENTION (CURRENT) DRUG THERAPY 11/07/2018 YURIDIA REAVES MD Ot Z88.0 ALLERGY STATUS TO PENICILLIN 11/07/2018 YURIDIA REAVES MD Ot Z98.5 2 VASECTOMY STATUS 11/08/2018 YURIDIA REAVES MD, Ot Z01.8 18 ENCOUNTER FOR OTHER PREPROCEDURAL EXAMIN 11/12/2018 YURIDIA REAVES MD, Ot N20.1 CALCULUS OF URETER 11/12/2018 YURIDIA REAVES MD, Ot Z96.0 PRESENCE OF UROGENITAL IMPLANTS 11/14/2018 YURIDIA REAVES MD, Ot I10 ESSENTIAL (PRIMARY) HYPERTENSION 11/14/2018 YURIDIA REAVES MD, Ot 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, PART UNSP, W/O PERF 11/14/2018 YURIDIA REAVES MD, Ot N20.1 CALCULUS OF URETER 11/14/2018 YURIDIA REAVES MD, Ot Z79.8 91 DETENTION (CURRENT) USE OF OPIATE ANALGE 11/14/2018 YURIDIA REAVES MD, Ot Z79.8 99 OTHER DETENTION (CURRENT) DRUG THERAPY 11/14/2018 YURIDIA REAVES MD, Ot Z88.0 ALLERGY STATUS TO PENICILLIN 11/14/2018 YURIDIA REAVES MD, Ot Z98.5 2 VASECTOMY STATUS 11/15/2018 YURIDIA REAVES MD, Ot N20.1 CALCULUS OF URETER 11/23/2018 YURIDIA REAVES MD, Ot N20.2 CALCULUS OF KIDNEY WITH CALCULUS OF URET 11/30/2018 YURIDIA REAVES MD, Ot N20.2 CALCULUS OF KIDNEY WITH CALCULUS OF URET 12/01/2018 YURIDIA REAVES MD, Ot N20.1 CALCULUS OF URETER 12/01/2018 YURIDIA REAVES MD, Ot Z96.0 PRESENCE OF UROGENITAL IMPLANTS 12/06/2018 YURIDIA REAVES MD, Ot N20.1 CALCULUS OF URETER 12/06/2018 YURIDIA REAVES MD, Ot Z96.0 PRESENCE OF UROGENITAL IMPLANTS 12/13/2018 YURIDIA REAVES MD, Ot N20.1 CALCULUS OF URETER Procedures There is no data. Results Test Result Range Complete blood count (CBC) with automate d white blood cell (WBC) differential - 10/29/18 09:08 Blood leukocytes automated count (number/volume) 11.0 10*3/uL 4.3-11.0 Blood erythrocytes automated count (number/volume) 4.69 10*6/uL 4.35-5.85 Venous blood hemoglobin measurement (mass/volume) 14.3 g/dL 13.3-17.7 Blood hematocrit (volume fraction) 41 % 40-54 Automated erythrocyte mean corpuscular volume 88 [ foz_us] 80-99 Automated erythrocyte mean corpuscular h emoglobin (mass per erythrocyte) 30 pg 25-34 Automated erythrocyte mean corpuscular h emoglobin concentration measurement (mass/volume) 35 g/dL 32-36 Automated erythrocyte distribution width ratio 13. 7 % 10.0- 14.5 Automated blood platelet count (count/volume) 274 10*3/uL 130-400 Automated blood platelet mean volume measurement 9.9 [foz_us] 7.4-10.4 Automated blood neutrophils/100 leukocytes 65 % 42-75 Automated blood lymphocytes/100 leukocytes 22 % 12-44 Blood monocytes/100 leukocytes 9 % 0-12 Automated blood eosinophils/100 leukocytes 3 % 0-10 Automated blood basophils/100 leukocytes 1 % 0-10 Blood neutrophils automated count (number/volume) 7.1 10*3 1.8-7.8 Blood lymphocytes automated count (number/volume) 2.4 10*3 1.0-4.0 Blood monocytes automated count (number/volume) 1. 0 10*3 0.0-1.0 Automated eosinophil count 0.4 10*3/uL 0 .0-0.3 Automated blood basophil count (count/volume) 0.1 10*3/uL 0.0-0.1 Comprehensive metabolic panel - 10/29/18 09:08 Serum or plasma sodium measurement (moles/volume) 142 mmol/L 135-145 Serum or plasma potassium measurement (moles/volume) 3.5 mmol/L 3.6-5.0 Serum or plasma chloride measurement (moles/volume) 103 mmol/L 98-107 Carbon dioxide 22 mmol/L 21-32 Serum or plasma anion gap determination (moles/volume) 17 mmol/L 5-14 Serum or plasma urea nitrogen measurement (mass/volume ) 20 mg/dL 7-18 Serum or plasma creatinine measurement (mass/volume) 1.35 mg/dL 0.60-1.30 Serum or plasma urea nitrogen/creatinine mass ratio 15 NRG Serum or plasma creatinine measurement w ith calculation of estimated glomerular filtration rate 52 NRG Serum or plasma glucose measurement (mass/volume) 122 mg/dL 70-105 Serum or plasma calcium measurement (mass/volume) 10.0 mg/dL 8.5-10.1 Serum or plasma total bilirubin measurement (mass/volu me) 0.4 mg/dL 0.1-1.0 Serum or plasma alkaline phosphatase scarlet surement (enzymatic activity/volume) 105 U/L 40-136 Serum or plasma aspartate aminotransfera se measurement (enzymatic activity/volume) 23 U/L 5-34 Serum or plasma alanine aminotransferase measurement (enzymatic activity/volume) 27 U/L 0-55 Serum or plasma protein measurement (mass/volume) 8.1 g/dL 6.4-8.2 Serum or plasma albumin measurement (mass/volume) 4.8 g/dL 3.2-4.5 Lipase - 10/29/18 09:08 Lipase 56 U/L 8-78 Complete urinalysis with reflex to cultu re - 10/29/18 22:48 Urine color determination YELLOW NRG Urine clarity determination CLEAR NR G Urine pH measurement by test strip 6.0 5-9 Specific gravity of urine by test strip 1.020 1.016-1.022 Urine protein assay by test strip, semi-quantitative NEGATIVE NEGATIVE Urine glucose detection by automated test strip NE GATIVE NEGATIVE Erythrocytes detection in urine sediment by light micr oscopy 2+ NEGATIVE Urine ketones detection by automated test strip NE GATIVE NEGATIVE Urine nitrite detection by test strip NEGATIVE NEGATIVE Urine total bilirubin detection by test strip NEGA TIVE NEGATIVE Urine urobilinogen measurement by automated test strip (mass/volume) 0.2 mg/dL NORMAL Urine leukocyte esterase detection by dipstick NEG ATIVE NEGATIVE Automated urine sediment erythrocyte cou nt by microscopy (number/high power field) [HPF] NRG Automated urine sediment leukocyte count by microscopy (number/high power field) NONE NRG Bacteria detection in urine sediment by light microsco py NEGATIVE NRG Crystals detection in urine sediment by light microsco py NONE NRG Casts detection in urine sediment by light microscopy NONE NRG Mucus detection in urine sediment by light microscopy NEGATIVE NRG Complete urinalysis with reflex to culture NO NRG Methicillin resistant Staphylococcus aur eus (MRSA) screening culture - 10/31/18 07:35 Methicillin resistant Staphylococcus aureus (MRSA) scr eening culture NEG NRG Methicillin resistant Staphylococcus aur eus (MRSA) screening culture - 11/07/18 08:25 Methicillin resistant Staphylococcus aureus (MRSA) scr eening culture NEG NRG Encounters ACCT No. Visit Date/Time Discharge Status Pt. Type Provider Facility Loc./Unit Complaint [id number] 11/14/2018 14:00:00 23:59:59 CLS Preadmit YURIDIA REAVES MD [facility] SDC LEFT URETERAL STONE [id number] 11/13/2018 14:29:00 23:59:59 CLS Outpatient YURIDIA REAVES MD [facility] RAD STONE [id number] 11/07/2018 07:35:00 11:46:00 DIS Outpatient YURIDIA REAVES MD [facility] SDC LEFT URETERAL STONE [id number] 11/06/2018 13:10:00 23:59:59 CLS Outpatient YURIDIA REAVES MD [facility] RAD LT URETERAL STONE [id number] 11/06/2018 05:47:00 15:30:00 DIS Outpatient YURIDIA REAVES MD [facility] PREOP LEFT ESWL [id number] 10/31/2018 07:19:00 12:25:00 DIS Outpatient YURIDIA REAVES MD [facility] SDC LEFT PROXIMAL URETERAL STONE [id number] 10/30/2018 13:08:00 23:59:59 CLS Outpatient YURIDIA REAVES MD [facility] RAD LT URET STONE [id number] 10/30/2018 15:36:00 16:18:00 DIS Outpatient YURIDIA REAVES MD [facility] PREOP LEFT PROXIMAL URETERAL STONE [id number] 10/29/2018 20:26:00 23:16:00 DIS Emergency NELLY MATTHEWS MD [facility] ER FS LEFT BACK/FLANK PAIN
[2019-08-25 15:00] VITALS: BP 127/100
[2019-08-25] MEDS ORDERED: NF-CIPDEC OT (15:11)
--- NOTE | 2019-08-25 15:14 | ED EENT ---
History of Present Illness General Chief Complaint: Ear Problems Stated Complaint: RT EAR PAIN Nursing Triage Note: Patient presents to the ED with c/o of right ear pain. He reports his pain began approximately 2 days ago and was pretty severe last night. Source: patient Exam Limitations: no limitations History of Present Illness Date Seen by Provider: Aug 25, 2019 Time Seen by Provider: 15:05 Initial Comments R ear pain for 3 days, some minor drainage. NO previous occurrence. Wears hearing aids. Allergies and Home Medications Allergies Coded Allergies: Penicillins (Verified Allergy, Unknown, childhood unsure of reaction, ) Home Medications Allopurinol 300 Mg Tablet, 300 MG PO DAILY, (Reported) Amlodipine Besylate 10 Mg Tablet, 10 MG PO DAILY, (Reported) Ciprofloxacin HCl/Dexameth 7.5 Ml Soln, 7.5 ML OT BID Prescribed by: MARTA PASCUAL on 08/25/19 1511 Hydrocodone/Acetaminophen 1 Each Tablet, 1-2 EACH PO Q6H PRN for PAIN-MODERATE Prescribed by: QUOC BAIN on 11/07/18928 Metoprolol Tartrate 100 Mg Tablet, 100 MG PO DAILY, (Reported) Ondansetron HCl 4 Mg Tablet, 4 MG PO Q6H PRN for NAUSEA/VOMITING Prescribed by: NELLY MATTHEWS on 10/29/18 2253 Phenazopyridine HCl 200 Mg Tablet, 1 TAB PO TID Prescribed by: QUOC BAIN on 11/07/18928 Sulfamethoxazole/Trimethoprim 1 Each Tablet, 1 EACH PO BID Prescribed by: QUOC BAIN on 10/31/18 114 Sulfamethoxazole/Trimethoprim 1 Each Tablet, 1 EACH PO BID Prescribed by: QUOC BAIN on 11/07/18928 Tamsulosin HCl 0.4 Mg Cap, 0.4 MG PO DAILY Prescribed by: QUOC BAIN on 10/31/18 114 Tamsulosin HCl 0.4 Mg Cap, 0.4 MG PO DAILY Prescribed by: QUOC BAIN on 11/07/18928 Patient Home Medication List Home Medication List Reviewed: Yes Review of Systems Review of Systems Constitutional: No dizziness, No fever, No malaise, No weakness Eyes: No Symptoms Reported Ears: Denies Dizziness; Pain; Denies Bloody Discharge, Denies Clear Discharge; Purulent Discharge; Denies Previous Injury Nose: no symptoms reported Mouth: no symptoms reported Throat: no symptoms reported Respiratory: no symptoms reported Skin: no symptoms reported Past Ntirfat-Ezvrlk-Ywusul Hx Past Med/Social Hx: Reviewed Nursing Past Med/Soc Hx Patient Social History Alcohol Use: Denies Use Recreational Drug Use: No Smoking Status: Never a Smoker 2nd Hand Smoke Exposure: No Recent Foreign Travel: No Contact w/Someone Who Travel: No Recent Infectious Disease Expo: No Recent Hopitalizations: No Physical Abuse: No Sexual Abuse: No Mistreated: No Fear: No Seasonal Allergies Seasonal Allergies: No Past Medical History Surgeries: Yes (circumcision, ureteroscopy) Vasectomy Respiratory: No Currently Using CPAP: No Currently Using BIPAP: No Cardiac: Yes Hypertension Neurological: No Genitourinary: Yes Kidney Infection, Kidney Stones Gastrointestinal: No Musculoskeletal: Yes Gout Endocrine: No HEENT: No Loss of Vision: Denies Hearing Impairment: Denies Cancer: No Psychosocial: No Integumentary: No Blood Disorders: No Physical Exam Vital Signs Vital Signs - First Documented 08/25/19 15:00 Temp 36.8 Pulse 67 Resp 16 B/P (MAP) 127/100 (109) Pulse Ox 99 O2 Delivery Room Air Height, Weight, BMI Height: 6'0.00" Weight: 215lbs. 0.0oz. 97.936934bg; 29.00 BMI Method:Stated General Appearance: WD/WN, no apparent distress Ears: right ear auricle normal, right ear discharge, right ear erythema, right ear tenderness Nose: normal inspection Mouth/Throat: normal mouth inspection Neck: non-tender, supple Neurologic/Psychiatric: alert, oriented x 3 Skin: normal color, warm/dry Progress/Results/Core Measures Results/Orders Vital Signs/I&O 08/25/19 15:00 Temp 36.8 Pulse 67 Resp 16 B/P (MAP) 127/100 (109) Pulse Ox 99 O2 Delivery Room Air Blood Pressure Mean: 109 Progress Progress Note : Progress Note moderate amount of white discharge R ear canal. Irrigated by nurse. Pt tolerated well. Instructed on use of rinsing ear w diluted peroxide for a few days along w Cipro-HC drops Departure Impression Primary Impression: Otitis externa Qualified Codes: H60.501 - Unspecified acute noninfective otitis externa, right ear Disposition: HOME, SELF-CARE Condition: Stable Departure-Patient Inst. Decision time for Depature: 15:12 Referrals: ELVIRA ANDERSON MD (PCP/Family) Primary Care Physician Patient Instructions: Outer Ear Infection (DC) Add. Discharge Instructions: See Dr Anderson in 1 week for re-evaluation. You may rinse your right ear canal with a mixture of (1/2 water and 1/2 per oxide) daily for 3 days. Do this 30 minutes before applying your ear drops. All discharge instructions reviewed with patient and/or family. Voiced understanding. Scripts Ciprofloxacin HCl/Dexameth (Ciprodex Otic Suspension) 7.5 Ml Soln 7.5 ML OT BID for 7 Days, #1 EA Prov: MARTA PASCUAL DO 08/25/19 MARTA PASCUAL DO Aug 25, 2019 15:14
== END 2019-08-25 15:16 | disposition home or self-care (01) ==
LOC: EDUNIT# 14:53 → ER FS 14:55
DX: H60.501 Unspecified acute noninfective otitis externa, right ear (principal); Z88.0 Allergy status to penicillin; I10 Essential (primary) hypertension; M10.9 Gout, unspecified; Z79.899 Other long term (current) drug therapy
CPT/HCPCS: 99282